=== PATIENT | female | born 1970 | race Two or more races ===

== ENCOUNTER 2019-07-21 05:21 | Day surgery (SDC) | payer BC ==
[~2019-07-21] VITALS: Ht 165.1 cm; Wt 97.5 kg
[2019-07-21] VITALS (10 sets, daily range): BP systolic 110–128; BP diastolic 57–72
[~2019-07-21 05:21] MED LIST: CYCLOBENZAPRINE10 MG ORAL; CYMBALTA30 MG ORAL; EMGALITY S120 MG/1 M SQ; ENSKYCE1 EACH PO; PROPRANOLOL HCL40 MG ORAL; REGLAN5 MG ORAL
[2019-07-21] MEDS ORDERED: NS Irrig 1000ml ONE (06:19)
[2019-07-21] MEDS ORDERED: LR 1000ml ONE (06:19)
[2019-07-21] MEDS ORDERED: Sterile Water Irrig 1000ml IRRIG ONE (06:19)
[2019-07-21] MEDS ORDERED: Dexamethasone 4mg/ml vial ONE (06:36)
[2019-07-21] MEDS ORDERED: Lidocaine 1% MPF 10mg/ml 5ml ONE (06:36)
[2019-07-21] MEDS ORDERED: Sodium Chloride 10ml vial INJ ONE (06:36)
[2019-07-21] MEDS ORDERED: Propofol 200mg/20ml IV ONE (06:36)
[2019-07-21] MEDS ORDERED: LR 1000ml 1,000 ML IVLG SCH (06:38)
--- NOTE | 2019-07-21 06:41 | Anethesia Preoperative Eval ---
Anesthesia Pre-op PMH/ROS General Date of Evaluation: Jul 21, 2019 Time of Evaluation: 06:19 Anesthesiologist: Marilee ASA Score: ASA 2 Mallampati Score Class I : Soft palate, uvula, fauces, pillars visible Class II: Soft palate, uvula, fauces visible Class III: Soft palate, base of uvula visible Class IV: Only hard plate visible Mallampati Classification: Class II Surgeon: Mauro Diagnosis: Fx R Ankle Surgical Procedure: ORIF Right Ankle Anesthesia History: none Family History: no anesthesia problems Allergies: Coded Allergies: CEPHALEXIN (Verified Allergy, Intermediate, full body rash, 07/20/19) SULFA (SULFONAMIDE ANTIBIOTICS) (Verified Allergy, Intermediate, full body rash, 07/20/19) TRIMETHOPRIM (Verified Allergy, Unknown, 07/20/19) Medications: see eMAR Patient NPO?: Yes Past Medical History Cardiovascular: Reports: other - MVP Neurologic/Psychiatric: Reports: depression/anxiety, other - Vertigo, Migrane Anesthesia Pre-op Phys. Exam Physician Exam Last Vital Signs Date Time Temp Pulse Resp B/P (MAP) Pulse Ox O2 Delivery O2 Flow Rate FiO2 07/21/19 06:11 Room Air 07/21/19 06:03 97.7 75 18 128/72 97 Constitutional: NAD Neurologic: CN 2-12 intact Cardiovascular: RRR Respiratory: CTA Gastrointestinal: S/NT/ND Airway Exam Mallampati Score: Class II MO: full ROM: full Teeth: intact Anesthesia Pre-op A/P Risk Assessment & Plan Assessment: ASA 2 Plan: GA, SED Status Change Before Surgery: No Pre-Antibiotics Dru Grams Ancef IV Given Within 1 Hr of Incision: Yes Time Given: 07:16 Cuong Hunt MD Jul 21, 2019 06:41
[2019-07-21] MEDS ORDERED: Acetaminophen (Non formulary) 100 ML IV ONE ×2 (06:45→07:00)
[2019-07-21] MEDS ORDERED: oxyCODONE HCL/Acetaminophen 5/325mg ORAL PRN (06:45)
[2019-07-21] MEDS ORDERED: LORazepam Inj 2mg/ml 1ml IV PRN (06:45)
[2019-07-21] MEDS ORDERED: Hydromorphone 0.5mg/0.5ml inj IVP PRN (06:45)
[2019-07-21] MEDS ORDERED: Metoclopramide 10mg/2ml Inj IVP PRN (06:45)
[2019-07-21] MEDS ORDERED: Labetalol 5mg/ml 20ml vial IV PRN (06:45)
[2019-07-21] MEDS ORDERED: Meperidine 25mg/0.5ml Inj (FOR RIGORS ONLY) IV PRN (06:45)
[2019-07-21] MEDS ORDERED: fentaNYL 100 mcg/2 mL IV PRN (06:45)
[2019-07-21] MEDS ORDERED: HYDROcodone/Acetamin 5/325 tab ORAL PRN ×2 (06:45→07:15)
[2019-07-21] MEDS ORDERED: Midazolam 2mg/2ml Inj IVP PRN (06:45)
[2019-07-21] MEDS ORDERED: Ketorolac 30mg Inj IV PRN ×2 (06:45)
[2019-07-21] MEDS ORDERED: HYDROcodone/Acetamin 7.5/325 tab ORAL PRN (06:45)
[2019-07-21] MEDS ORDERED: DiphenhydrAMINE 50mg/ml Inj IVP PRN (06:45)
[2019-07-21] MEDS ORDERED: Atropine Sulfate 0.4mg/ml inj IVP PRN (06:45)
[2019-07-21] MEDS ORDERED: fentaNYL 100 mcg/2 mL IV ONE (06:49)
[2019-07-21] MEDS ORDERED: NeoSporin Gu Irrig 1ml Amp IRRIG ONE (06:56)
[2019-07-21] MEDS ORDERED: Bacitracin 50000 Units Vial ONE (06:56)
[2019-07-21] MEDS ORDERED: Bupivacaine w/Epi 0.5% 30ml Vial INJ ONE (06:56)
[2019-07-21] MEDS ORDERED: oxyCONTIN 20mg tab ORAL ONE (07:00)
[2019-07-21] MEDS ORDERED: Clindamycin 600mg 50 ML IV ONE (07:00)
[2019-07-21] MEDS ORDERED: Ropivacaine 2mg/ml Amp 20ml INJ ONE (07:01)
[2019-07-21] MEDS ORDERED: Ropivacaine 5mg/ml Vial 30ml INJ ONE (07:03)
--- NOTE | 2019-07-21 07:04 | Pre-Procedure Note/Attestation ---
Pre-Procedure Note/Attestation Complete Prior to Procedure Planned Procedure: right Procedure Narrative: rt ankle orif Indications for Procedure Pre-Operative Diagnosis: rt ankle fracture Attestation I attest that I discussed the nature of the procedure; its benefits; risks and complications; and alternatives (and the risks and benefits of such alternatives ), prior to the procedure, with the patient (or the patient's legal employee relations representative). I attest that, if there was a reasonable possibility of needing a blood transfusion, the patient (or the patient's legal employee relations representative) was given the [facility] standardized written summary, pursuant to the Cory Best Blood Safety Act ([place] Health and Safety Code # 1645, as amended). I attest that I re-evaluated the patient just prior to the surgery and that there has been no change in the patient's H&P, except as documented below: none Jero Wade MD Jul 21, 2019 07:04
[2019-07-21] MEDS ORDERED: HYDROmorphone 1mg/ml Carpuject SUBQ PRN (07:15)
[2019-07-21] MEDS ORDERED: Tylenol #3 tab (300mg/30mg) ORAL PRN (07:15)
[2019-07-21] MEDS ORDERED: D5 1/2NS 1,000 ML IV SCH (07:15)
--- NOTE | 2019-07-21 07:50 | 48 Hour Post Anesthesia Eval ---
Post Anesthesia Evaluation Procedure: ORIF Right Ankle Date of Evaluation: Jul 21, 2019 Time of Evaluation: 11:24 Blood Pressure Systolic: 121 0: 68 Pulse Rate: 74 Respiratory Rate: 18 Temperature (Fahrenheit): 97.6 O2 Sat by Pulse Oximetry: 100 Airway: patent Nausea: No Vomiting: No Pain Intensity: 3 Hydration Status: adequate Cardiopulmonary Status: Stable Mental Status/LOC: patient returned to baseline Follow-up Care/Observations: 0 Post-Anesthesia Complications: 0 Follow-up care needed: ready to discharge Cuong Hunt MD Jul 21, 2019 07:50
--- NOTE | 2019-07-21 07:50 | Immediate Post-Op Evaluation ---
Immediate Post-Op Evalulation Immediate Post-Op Evalulation Procedure: ORIF Right Ankle Date of Evaluation: Jul 21, 2019 Time of Evaluation: 09:18 IV Fluids: 700 LR Blood Products: 0 Estimated Blood Loss: 20 Urinary Output: 0 Blood Pressure Systolic: 121 Blood Pressure Diastolic: 57 Pulse Rate: 84 Respiratory Rate: 16 O2 Sat by Pulse Oximetry: 100 Temperature (Fahrenheit): 97.4 Pain Score (1-10): 2 Nausea: No Vomiting: No Complications 0 Patient Status: awake, reacts, patent, none Hydration Status: adequate Dru Grams Ancef IV Given Within 1 Hr of Incision: Yes Time Given: 07:16 Cuong Hunt MD Jul 21, 2019 07:50
--- NOTE | 2019-07-21 08:54 | Brief Operative Note ---
Immediate Post Operative Note Operative Note Chief Complaint: rt ankle injury Pre-op Diagnosis: rt ankle fracture Procedure: rt ankle orif Post-op Diagnosis: same as pre-op Findings: consistent w/pre-op dx studies Surgeon: md oralia Director Of Litigation: florin goodrich Anesthesiologist: md nahed Anesthesia: general Specimen: none Complications: none Condition: stable Fluids: ns Estimated Blood Loss: minimal Drains: none Implant(s) used?: Yes - Jero Segundo MD Jul 21, 2019 08:54
--- NOTE | 2019-07-21 11:15 | NUR ---
Good capillary filling to all right toes. Patient able to move left foot well and sensation to left thigh present. Right leg kept elevated with 2 pillows. Continous ice pack to right ankle in place and cast splint in place.
--- NOTE | 2019-07-21 13:41 | Diagnostic Imaging Report ---
Indication: Intraoperative imaging COMPARISON: None FINDINGS: Multiple fluoroscopic images were obtained intraoperatively. Images demonstrating a lateral compression plate and medial malleolus screws for reduction of bimalleolar fractures on multiple fluoroscopic obtained images. Fluoroscopic time is approximately 15 seconds. IMPRESSION: Intraoperative imaging as described above
--- NOTE | 2019-07-21 20:15 | Operative Note - Dictated ---
DATE OF OPERATION: 07/21/2019 PREOPERATIVE DIAGNOSIS: Right ankle bimalleolar fracture. POSTOPERATIVE DIAGNOSIS: Right ankle bimalleolar fracture. PROCEDURE: Right ankle open reduction and internal fixation with lateral plate and screws as well as two malleolar screws on the medial side. SURGEON: Jero Wade M.D. [employer]IC: Krista Quinones PA-C. ANESTHESIOLOGIST: Cuong Hunt M.D. ANESTHESIA: General LMA anesthesia combined with adductor block. ESTIMATED BLOOD LOSS: Less than 20 mL. COMPLICATIONS: None. TOURNIQUET TIME: 45 minutes. BRIEF HISTORY: The patient is a very pleasant 49-year-old female who sustained a mechanical fall on her steps at her house and sustained a bimalleolar ankle fracture. She was evaluated at the urgent care and subsequently in our office and was noted to have a displaced bimalleolar fracture with disruption of mortise. After full discussion of risks and benefits of the surgery and complications associated with it including infection, bleeding, neurovascular complication, possibility of malunion, possibility of nonunion, possibility of need for further surgery, possibility of wound complications, possibility of development of posttraumatic arthritis, and complication may arise. She opted for surgical treatment as described above. OPERATIVE PROCEDURE: The patient was brought to the operating table and was placed supine. All pressure points were well padded. General LMA anesthesia was induced and the right ankle was prepped and draped in usual sterile fashion. The right leg was exsanguinated. Tourniquet was inflated to 275 mmHg. X-rays were brought in and the fracture was identified. A standard lateral approach to the ankle was undertaken. The incision was taken through subcutaneous tissue and down to the fibula. The periosteal elevator was used to expose the fibula. At this point, there was an oblique fracture, which was displaced. This was reduced anatomically and a 6-hole plate was applied. At this point, three distal screws 2 of them cancellous and 1 of them bicortical and two proximal bicortical screws were placed. The fracture was reduced anatomically. The position of the plate and screws were checked and appeared to be anatomical. At this point, care was given to the medial side. A medial incision was made over the fracture. The fracture was exposed. The periosteum was entrapped within the fracture site was removed. The fracture was then reduced anatomically and two K-wires were placed in. The position of fracture was checked and appeared to be perfect. At this point, two 36 mm partially threaded cancellous 4.0 malleolar screws were placed in and the fracture and the patient tolerated procedure well. The wounds were thoroughly irrigated. Final x-rays were obtained and the mortise was stable and intact and the clear space was equal medial and laterally. There was no evidence of syndesmotic injury. The position of the plates and screws were checked on AP, mortise, lateral view and appeared to be perfect. The fracture was reduced anatomically. The wounds were thoroughly irrigated using copious amount of fluid. Subcutaneous tissue was closed using 2-0 Vicryl suture. The skin was closed using 3-0 Monocryl suture. Sterile dressing was applied and the patient was placed in a posterior splint with a Sugar tong and was taken to recovery room in stable condition. All lap counts and instrument counts were correct. Jero Wade M.D. DR: LOC JOB#: [id number] CC: PATIENCE
== END 2019-07-21 11:15 | disposition home or self-care (01) ==
LOC: SUR 05:21
DX: S82.841A Displaced bimalleolar fracture of right lower leg, initial encounter for closed fracture (principal); X58.XXXA Exposure to other specified factors, initial encounter; Y92.9 Unspecified place or not applicable; Z88.2 Allergy status to sulfonamides; Z88.8 Allergy status to other drugs, medicaments and biological substances; F32.9 Major depressive disorder, single episode, unspecified; F41.9 Anxiety disorder, unspecified
CPT/HCPCS: 27814; 36415; 73600; 76000; 84703; C1713; J0131; J0690; J1100; J2250; J2405; J2704; J2795; J3010; J7120; 94003; 94150